=== PATIENT | male | born 1975 | race Two or more races ===

== ENCOUNTER 2025-03-10 11:24 | Day surgery (SDC) | payer BC, SELFPAY ==
[2025-03-10] VITALS (13 sets, daily range): BP systolic 106–131; BP diastolic 67–86; PULSE 58–87; RESP 16–18; TEMP 36.6; O2SAT 97–100; BMI 27.3
--- NOTE | ~2025-03-10 | IR_ITS ---
CLINICAL HISTORY: Right-sided breast cancer. The patient presents to interventional radiology for placement of a port for chemotherapy. PROCEDURES: 1. Real-time ultrasound-guided access into the left internal jugular vein after documentation of selected vessel patency, and permanent image storing in the patient records. 2. Placement of a 6.6 Bulgarian single-lumen port. CLINICIAN: Leroy Flood NP MEDICATIONS: - Versed , Fentanyl , Lidocaine 1% SQ -Antibiotics: Ancef 2g -For additional details, please see nursing flowsheet. Complications: None. Estimated blood loss: <5 ml Specimens: None. Contrast: None. Fluoroscopy time: 0.8 min MODERATE SEDATION TIME: 32 min PROCEDURE NOTE: The procedure, risks, benefits, and alternatives were carefully explained to the patient and written informed consent was obtained. The patient was placed supine on the fluoroscopy table. A timeout was performed. The left neck and chest was prepped and draped in usual sterile fashion. Maximum barrier technique was utilized. Local anesthesia was administered to the access site with 1% lidocaine. Under ultrasound guidance, the left internal jugular vein was accessed with a 5 fr micropuncture set. A 0.035 in wire was advanced into the IVC. A peel-away sheath was advanced over the wire and into the SVC, and the wire was removed. Next, subcutaneous lidocaine was administered to the chest. The port pocket was created after the skin incision, utilizing blunt dissection. Using blunt dissection, a subcutaneous tunnel was created that connects from the port pocket to the venotomy site. Through the peel-away sheath, the 6.6 Bulgarian port catheter was placed. The catheter position was verified with fluoroscopy to be at the superior vena cava/right atrial junction. The port was connected to the catheter and was placed in the pocket. The port incision site was closed with interrupted 3-0 Vicryl subcutaneous sutures and surgical glue. Prior to closing the skin, 1 g of Ancef solution was placed in the pocket. The port was tested, flushed, and packed with heparin per routine protocol. The patient tolerated the procedure well. The patient was stable after the procedure and was transferred to the PACU. The procedure was performed under moderate sedation and with a dedicated nurse with continuous monitoring of vital signs. A permanent image of the ultrasound the neck and fluoroscopic image of the chest was saved and sent to PACS. FINDINGS: 1. Patent left internal jugular vein 2. Placement of a 6.6 Bulgarian single lumen port. 3. Port flushes and aspirates very well with a 10 mL syringe. No pneumothorax. 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 PLAN: - The patient will be discharged home when stable by sedation protocol. - Port may be used immediately. This procedure was performed by Leroy Flood NP and directly supervised by Tuan Duke M.D. Electronically signed by: Tuan Duke MD 03/15/2025 02:59 PM EST Workstation: [id number]
[2025-03-10 12:11] LABS: INTERNATIONAL NORM RATIO 1.0 (0.9-1.1); Prothrombin Time 12.8 SEC (11.2-13.5)
[2025-03-10 12:25] LABS: Glucose, Whole Blood 130 mg/dL (60-115)
== END 2025-03-10 15:59 | disposition home or self-care (01) ==
PROVIDERS: Radiology Diagnostic Radiology; Visit Provider Internal Medicine Medical Oncology
DX: Z45.2 Encounter for adjustment and management of vascular access device (principal); C50.221 Malignant neoplasm of upper-inner quadrant of right male breast; Z17.0 Estrogen receptor positive status [ER+]; Z17.21 Progesterone receptor positive status; Z17.32 Human epidermal growth factor receptor 2 negative status; Z90.11 Acquired absence of right breast and nipple; R53.83 Other fatigue; R51.9 Headache, unspecified; E11.9 Type 2 diabetes mellitus without complications; Z79.84 Long term (current) use of oral hypoglycemic drugs
CPT/HCPCS: 36415; 36561; 76937; 82947; 85610; 99152; 99153; C1769; C1788; J0690; J1642; J1644; J2003; J2250; J3010

== ENCOUNTER → 2025-03-10 12:37 | Outpatient (BNV) | payer BC, SELFPAY | DX: C50.921 Malignant neoplasm of unspecified site of right male breast (principal) | CPT/HCPCS: 36561; 76937 ==

== ENCOUNTER → 2025-03-17 10:00 | Outpatient (BNV) | payer BC, SELFPAY | PROVIDERS: PCP Internal Medicine; Referring Provider Radiology Diagnostic Radiology; Visit Provider Internal Medicine Medical Oncology | DX: C50.221 Malignant neoplasm of upper-inner quadrant of right male breast (principal); D72.819 Decreased white blood cell count, unspecified; Z17.0 Estrogen receptor positive status [ER+]; Z86.2 Personal history of diseases of the blood and blood-forming organs and certain disorders involving the immune mechanism | CPT/HCPCS: 99204 ==

== ENCOUNTER 2025-03-18 09:16 | Outpatient (AMB) | payer BC, SELFPAY ==
--- NOTE | 2025-03-18 09:27 | MHC.PC.OV ---
Vital Signs 03/18/25 09:29 Height 5 ft 3.78 in Weight 160 lb 6 oz BMI 27.7 BP 100/72 Blood Pressure Location Lt brachial Position Sitting Pulse 76 Pulse Source Pulse Oximeter Temp 97.1 F Temp Source Temporal Artery Scan Pulse Oximetry (%) 98 Oxygen Delivery Method Room Air Intake Visit Reasons: new patient oncology referral Intake Note: Patient is a new patient here to establish care for DM, Breast Caner on Right side. Transferring care from [facility]. Medical records have not been requested and have not received. Bench Worker Helper Required: No Testing Specialist: Not Required per policy Accompanied by: Self / Same As Patient Allergies No Known Allergies Allergy (Verified 03/18/25 09:29) Medication List - Last Reconciled 03/18/25 by Ruy Hunter MD cholecalciferol (vitamin D3) (Vitamin D3) 50 mcg PO DAILY dexamethasone 4 mg PO BID metformin 500 mg PO BID ondansetron 8 mg PO Q8H Tobacco use date assessed: 03/18/25 Dental Screening Dental Screen Date: 03/18/25 Did you have a dental visit in the last 12 months?: No Did you have a dental problem in the last 6 months where you did not have access to dental care?: No Was dental information given to patient?: No HPI HPI Comments History of Present Illness Details The patient is a 49 year old individual with PMH of breast cancer under the excellet care of Dr.. Rafa Mercado presenting to establish primary care. This is the patient's first time having a primary care physician. The patient has a history of breast cancer and is being followed by oncology. The patient underwent a mastectomy on 02/08, with pathology revealing grade 3 infiltrating ductal carcinoma that was ER/NH positive, HER2 positive, and FISH negative. Treatment history includes one cycle of chemotherapy in [place] and a second cycle started yesterday locally. Associated medications include dexamethasone and Zofran for nausea. The patient also has a history of diabetes and previously managed it with diet and exercise. The patient currently takes metformin and requested a refill. A review of labs from 02/04 revealed a normal fasting glucose on medication, glucose in the urine, and an HbA1c of 7.6%. Other lab findings from 02/04 include low vitamin D, elevated IgE, and high TIBC. CBC, testosterone, ESR, CMP, creatinine (1.09), lipid panel (LDL 86), amylase, lipase, TSH (3.0), vitamin B12, iron, and tumor markers (CA 19-9, CEA, beta-HCG, PSA) were all within normal limits. [facility] Medical History (Updated 03/18/25 @ 10:35 by Ruy Hunter MD) Breast cancer in male Diabetes Surgical History (Updated 03/18/25 @ 10:07 by Rogelio Craig MD) History of cystostomy History of breast surgery Social History (Updated 03/18/25 @ 09:28 by GARLAND Emery) Household Members: Spouse and Children Housing: Apartment Are you a primary director of medicare to a significant other at home: No Do you presently have visiting nurse or other home services: No Alcohol intake: never Patient Tobacco Use Status: Never used Tobacco e-Cigarette/Vaping Use: Never Used Second Hand Smoke Exposure: No Advance Directives Date on File: 03/10/25 service: No Current occupational status: employed 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 1. Little interest or pleasure in doing things: not at all 2. Feeling down, depressed, or hopeless: not at all 3. Trouble falling or staying asleep, or sleeping too much: not at all 4. Feeling tired or having little energy: not at all 5. Poor appetite or overeating: not at all 6. Feeling bad about yourself - or that you are a failure or have let yourself or your family down: not at all 7. Trouble concentrating on things, such as reading the newspaper or watching television: not at all 8. Moving or speaking so slowly that other people could have noticed. Or the opposite - being so fidgety or restless that you have been moving around a lot more than usual: not at all 9. Thoughts that you would be better off or of hurting yourself in some way: not at all Total score: 0 Depression Screening Interpretation: Negative Depression Screening Done: Yes Source: Developed by Drs. Leonel Whitmore, Chelsi Parker, Ru Guerrero and colleagues, with an educational sudha from [employer]. Thrive Questionnaire Date Thrive assessed: 03/18/25 I am a: Patient What is your living situation today?: I have a steady place to live Within the past 12 months, did the food you bought not last and you didn't have the money to get more?: Never true Within the past 12 months, did you worry whether your food would run out before you got money to buy more?: Never true Do you have trouble paying for medicines?: No Do you have trouble getting transportation to medical appointments?: No Do you have trouble paying your heating and electricity bill?: No Do you have trouble taking care of your child, family member or friend?: No Do you have trouble with day-to-day activities such as bathing, preparing meals, shopping, managing finances, etc.?: No Are you currently unemployed and looking for a job?: No Are you interested in more education?: No Please select the resources that you would like help with: None Currently or been in a relationship where the following occur: No concerns reported THRIVE Score: 0 AUDIT C Alcohol Use Questionnaire (AUDIT-C) 1. How often do you have a drink containing alcohol?: Never Total Score: 0 ALEX-7 AMB Questionnaire ALEX-7 Date ALEX - 7 assessed: 03/18/25 Feeling nervous, anxious, or on edge: 0 = Not at all Not being able to stop or control worryin = Not at all Worrying too much about different things: 0 = Not at all Trouble relaxin = Not at all Being so restless that it is hard to sit still: 0 = Not at all Becoming easily annoyed or irritable: 0 = Not at all Feeling afraid as if something awful might happen: 0 = Not at all Total ALEX-7 score (0-4 normal; 5-9 mild; 10-14 moderate; 15-21 severe): 0 Source: Developed by Drs. Leonel Whitmore, Chelsi Parker, Ru Guerrero and colleagues, with an educational sudha from [employer]. Review of Systems Const Details: As per HPI. Physical exam (Primary Care) Vital Signs: Last Vital Signs Temp 97.1 F 03/18/25 09:29 Pulse 76 03/18/25 09:29 BP 100/72 03/18/25 09:29 Pulse Ox 98 03/18/25 09:29 Oxygen Delivery Method Room Air 03/18/25 09:29 BMI result Body Mass Index 27.7 Tobacco/Smoking Status: Tobacco use Status Tobacco use date assessed 03/18/25 03/18/25 09:33 Patient Tobacco Use Status Never used Tobacco 03/18/25 09:33 e-Cigarette/Vaping Use Never Used 03/18/25 09:33 PHQ-9: PHQ-9 Score PHQ-9: Total score 0 03/18/25 09:33 Depression Screening Interpretation: Negative Thrive Assessment: Date of Thrive Assessment Date Thrive assessed 03/18/25 03/18/25 09:33 Currently or been in a relationship where the following occur: No concerns reported Const Other: Pertinent findings are in BOLD GENERAL APPEARANCE NAD, activity normal for age, well developed/ well nourished, no cyanosis, pallor, or diaphoresis. EYES lids/conjunctiva normal. EARS/NOSE/THROAT Mucous membranes moist, nares normal, lips/teeth normal uvula midline without oral pharyngeal erythema, exudate or swelling TMs normal bilaterally. No lymphangitis/lymphedema. HEAD/NECK normocephalic atraumatic, no facial trauma, neck is supple. RESPIRATORY respiratory effort normal, speaks in full sentences, no tripod position, no accessory muscle use. Lungs clear to auscultation without rhonchi, wheezes, rales CARDIAC Regular rate and rhythm, no edema. ABDOMINAL Soft, ND/NT. No evidence of fluid wave. No pulsatile masses on exam, rebound tenderness, Lezama sign or pain over Mcburney's point. MUSCLES/EXTREMITIES No abnormal range of motion, no swelling. SKIN Warm, pink and dry. No rashes, dermatoses, petechiae or lesions. NEUROLOGICAL Speech is clear and appropriate. Normal level of consciousness. Gait and coordination are normal. 5/5 strength in all extremities. PSYCH Normal mood and affect. Judgement/competence is appropriate Coding Level of Care Code New Pt Level 4 (33181) Diagnoses Malignant neoplasm of right breast in male, estrogen receptor positive, unspecified site of breast C50.921; Z17.0 Breast location: unspecified site of breast Estrogen receptor status: positive Type 2 diabetes mellitus without complication, without long-term current use of insulin E11.9 Diabetes mellitus type: type 2 Diabetes mellitus prison insulin use: without buttermaker use Diabetes mellitus complication status: without complication Time Spent (min) 45 Assessment & Plan Assessment & Plan (1) Cancer of right male breast: Code(s): C50.921 - Malignant neoplasm of unspecified site of right male breast Category: Medical Qualifiers: Breast location: unspecified site of breast Estrogen receptor status: positive Qualified Code(s): C50.921 - Malignant neoplasm of unspecified site of right male breast; Z17.0 - Estrogen receptor positive status [ER+] Plan: - The patient will continue with the current chemotherapy treatment as directed by the oncology team. - The patient will maintain regular follow-ups with their oncologist. - High TIBC will continue to be monitored for now. (2) Diabetes: Code(s): E11.9 - Type 2 diabetes mellitus without complications Category: Medical Qualifiers: Diabetes mellitus type: type 2 Diabetes mellitus prison insulin use: without prison use Diabetes mellitus complication status: without complication Qualified Code(s): E11.9 - Type 2 diabetes mellitus without complications Plan: - A prescription for metformin has been provided for a 4-month supply (120 tablets) with three refills. - The patient is encouraged to continue the current diet, avoiding rice, white flour, and sugar. - A follow-up visit is scheduled in three months to recheck the HbA1c and assess the effectiveness of the dietary changes. - Podiatry and Eye doctor referral placed. Will discuss with the patient next visit. Plan I have reviewed the patient's outside records and recent laboratory results from 02/04. We discussed the ongoing management of the patient's breast cancer, and I advised the patient to continue following the recommendations of the oncology team, as they are most familiar with the case. I provided a refill for metformin and encouraged continuation of the current dietary modifications, which include avoiding rice, white flour, and sugar. I will also provide a prescription for vitamin D. We will follow up in three months to perform an annual physical, repeat the HbA1c to monitor the diabetes, and assess progress. Orders: Referrals Podiatry Referral E11.9 - Type 2 diabetes mellitus without complications Medications: New metformin 500 mg PO BID 120 tabs 3RF
[2025-03-18 09:29] VITALS: BP 100/72; PULSE 76; TEMP 36.2; O2SAT 98; BMI 27.7
== END 2025-03-18 11:26 | disposition home or self-care (01) ==
LOC: HO.HMCH 09:17
PROVIDERS: PCP Internal Medicine; Visit Provider Internal Medicine
DX: C50.921 Malignant neoplasm of unspecified site of right male breast (principal); Z17.0 Estrogen receptor positive status [ER+]; E11.9 Type 2 diabetes mellitus without complications